=== PATIENT | female | born 1940 | race African-American/Black ===

== ENCOUNTER 2022-02-21 09:19 | Inpatient (IN) | payer BC, MEDICARE ==
[~2022-02-21] VITALS: Ht 165.1 cm; Wt 52.2 kg
[2022-02-21] MEDS ORDERED: IOHEXOL-350 100 ML BOTTLE ONE (10:06)
[2022-02-21 10:20] LABS: BASOPHILS % 0.6 % (0.0-2.0); EOSINOPHILS % 0.1 % (0.0-5.0); HEMATOCRIT. 27.2 % (36.0-48.0); HEMOGLOBIN. 7.9 g/dL (12.0-16.0); LYMPHOCYTES % 22.8 % (20.0-50.0); MEAN CORPUSCULAR HEMOGLOBIN 25.5 pg (28.0-32.0); MEAN CORPUSCULAR VOLUME 88.2 fL (81.0-99.0); MEAN PLATELET VOLUME 7.8 fl (7.4-10.4); MONOCYTES % 9.3 % (2.0-8.0); NEUTROPHILS % 67.2 % (40.0-76.0); PLATELET 266 x1000/uL (130-400); RED BLOOD CELL COUNT 3.09 mill/uL (4.2-5.4); RED CELL DISTRIBUTION WIDTH 18.3 % (11.6-14.6)
[2022-02-21 10:21] LABS: CHLORIDE 106 mEq/L (98-107)
[2022-02-21 10:24] LABS: ETHANOL BLOOD < 10 mg/dL
[2022-02-21 10:29] LABS: CREATINE KINASE 57 IU/L (26-192)
[2022-02-21] MEDS ORDERED: DEXAMETHASONE 10 MG/ML VIAL IV ONE (10:30)
[2022-02-21] MEDS ORDERED: LEVETIRACETAM 500MG PREMIX 100 ML IV ONE (10:30)
[2022-02-21] MEDS ORDERED: PIPERACILLIN/TAZOBACTAM 3.375GM/50ML PREMIX IV ONE (10:30)
[2022-02-21] MEDS ORDERED: LORAZEPAM 2MG/ML CPJ IV ONE (10:30)
[2022-02-21] MEDS ORDERED: PIPERACILLIN/TAZ 3.375G PREMIX 50 ML IV NR (11:00)
[2022-02-21 11:29] LABS: BG BASE EXCESS -21.6 mmol/L (-2.0-2.0); BG CARBOXYHEMOGLOBIN 0.3 % (0.5-1.5); BG DEOXYHEMOGLOBIN 1.1 % (0.0-5.0); BG FRACTION INSPIRED OXYGEN 100; BG HCO3 ACT 10.3 mmol/L (22.0-26.0); BG METHEMOGLOBIN 0.8 % (0.0-1.5); BG OXYGEN SATURATION 98.9 % (92.0-98.5); BG OXYHEMOGLOBIN 97.8 % (94.0-97.0); BG PCO2 54.1 mmHg (35.0-45.0); BG PH 6.896 (7.350-7.450); BG PO2 235.9 mmHg (75.0-100.0); BG SAMPLE SITE RIGHT BRACHIAL; BG TOTAL HEMOGLOBIN 8.4 g/dL (12.0-18.0); BG VENT MODE MASK - NRB
[2022-02-21] MEDS: DEXAMETHASONE 10 MG/ML VIAL IV NR ×2 (11:38→15:57)
[2022-02-21] MEDS ORDERED: DILTIAZEM HCL 5MG/ML 5ML VIAL IV ONE (12:00)
[2022-02-21] MEDS ORDERED: SODIUM BICARBONATE 8.4% 1 MEQ/ML 50ML SYR IV ONE ×2 (12:30)
[2022-02-21] MEDS ORDERED: MORPHINE SULFATE 4 MG/ML CPJ (NOT FOR IM USE) IV ONE (12:30)
[2022-02-21] MEDS ORDERED: SODIUM BICARBONATE 100 MEQ in DEXTROSE 5% WATER 1,000 ML IV SCH (12:30)
[2022-02-21] MEDS ORDERED: DIGOXIN 500MCG/2ML AMP IV SCH (13:00)
[2022-02-21] MEDS ORDERED: ONDANSETRON HCL 4MG/2ML INJ IV PRN (13:45)
[2022-02-21] MEDS ORDERED: IPRATROPIUM/ALBUTEROL 0.5-3(2.5)MG/3ML NEB NEB PRN (13:45)
[2022-02-21] MEDS ORDERED: NA PHOS,M-B/NA PHOS,DI-BA ENEMA 118ML PR PRN (13:45)
[2022-02-21] MEDS ORDERED: ACETAMINOPHEN 650MG SUPP PR PRN (13:45)
[2022-02-21] MEDS ORDERED: NALOXONE HCL 0.4MG/ML VIAL IV PRN (14:00)
[2022-02-21] MEDS ORDERED: DEXT 5%/0.45% NACL 1000ML 1,000 ML IV SCH (14:00)
[2022-02-21] MEDS: IPRATROPIUM/ALBUTEROL 0.5-3(2.5)MG/3ML NEB NEB SCH (14:51)
[2022-02-21] MEDS: LORAZEPAM 2MG/ML CPJ IV PRN (15:57)
[2022-02-21 16:08] LABS: CREATINE KINASE MB FRACTION 2.1 ng/mL (0.5-3.6)
[2022-02-21 17:12] LABS: BG BASE EXCESS -2.2 mmol/L (-2.0-2.0); BG DEOXYHEMOGLOBIN 5.4 % (0.0-5.0); BG METHEMOGLOBIN 0.4 % (0.0-1.5); BG OXYGEN SATURATION 94.6 % (92.0-98.5); BG OXYHEMOGLOBIN 94.2 % (94.0-97.0); BG PCO2 64.2 mmHg (35.0-45.0); BG PH 7.226 (7.350-7.450); BG PO2 89.7 mmHg (75.0-100.0); BG SAMPLE SITE RIGHT BRACHIAL; BG TOTAL HEMOGLOBIN 9.9 g/dL (12.0-18.0); BG VENT MODE MASK - NRB
[2022-02-21 17:40] LABS: CHLORIDE 105 mEq/L (98-107)
[2022-02-21 17:45] LABS: HEMATOCRIT. 31.5 % (36.0-48.0); HEMOGLOBIN. 9.2 g/dL (12.0-16.0); MEAN CORPUSCULAR HEMOGLOBIN 24.9 pg (28.0-32.0); MEAN CORPUSCULAR VOLUME 85.1 fL (81.0-99.0); MEAN PLATELET VOLUME 8.1 fl (7.4-10.4); PLATELET 184 x1000/uL (130-400); RED BLOOD CELL COUNT 3.71 mill/uL (4.2-5.4); RED CELL DISTRIBUTION WIDTH 18.3 % (11.6-14.6)
[2022-02-21 19:42] LABS: PLATELET ESTIMATE NORMAL
[2022-02-21] MEDS ORDERED: LEVETIRACETAM 500MG PREMIX 100 ML IV SCH (21:00)
[2022-02-21] MEDS ORDERED: DIGOXIN 500MCG/2ML AMP IV NR (21:15)
[2022-02-21 21:33] LABS: CLARITY URINE CLEAR (CLEAR); COLOR URINE YELLOW (YELLOW); KETONES URINE NEGATIVE (NEGATIVE); LEUKOCYTE ESTERASE URINE NEGATIVE (NEGATIVE); NITRITE URINE NEGATIVE (NEGATIVE); OCCULT BLOOD URINE NEGATIVE (NEGATIVE); PROTEIN URINE 2+ (NEGATIVE); SPECIFIC GRAVITY URINE 1.045 (1.005-1.030); UROBILINOGEN URINE 0.2 E.U./dL (0.2-1.0)
[2022-02-21 21:47] LABS: *AMPHETAMINES SCREEN URINE NEGATIVE (NEGATIVE); *BARBITURATES SCREEN URINE NEGATIVE (NEGATIVE); *BENZODIAZEPINES SCREEN URINE NEGATIVE (NEGATIVE); *COCAINE SCREEN URINE NEGATIVE (NEGATIVE); METHADONE URINE SCREEN NEGATIVE (NEGATIVE); OPIATES URINE SCREEN PRESUMTIVE POSITIVE (NEGATIVE)
[2022-02-21 21:48] LABS: CANNABINOID URINE SCREEN PRESUMTIVE POSITIVE (NEGATIVE); PHENCYCLIDINE URINE SCREEN NEGATIVE (NEGATIVE)
[2022-02-21] MEDS ORDERED: PIPERACILLIN/TAZOBACTAM 3.375 G in DEXTROSE 5% WATER 50 ML IV SCH (22:00)
[2022-02-21] MEDS: PANTOPRAZOLE SODIUM 40 MG/VIAL IV SCH (23:14)
[2022-02-21 23:46] LABS: CREATINE KINASE MB FRACTION 2.5 ng/mL (0.5-3.6)
[2022-02-22] VITALS (12 sets, daily range): BP systolic 133–158; BP diastolic 71–111
[2022-02-22] MEDS: PIPERACILLIN/TAZOBACTAM 3.375 G in DEXTROSE 5% WATER 50 ML IV SCH ×3 (06:32→22:39)
[2022-02-22 08:12] LABS: HEMATOCRIT. 27.3 % (36.0-48.0); HEMOGLOBIN. 8.5 g/dL (12.0-16.0); MEAN CORPUSCULAR HEMOGLOBIN 25.1 pg (28.0-32.0); MEAN PLATELET VOLUME 8.2 fl (7.4-10.4); PLATELET 209 x1000/uL (130-400); RED BLOOD CELL COUNT 3.41 mill/uL (4.2-5.4); RED CELL DISTRIBUTION WIDTH 17.4 % (11.6-14.6)
[2022-02-22 08:27] LABS: CHLORIDE 105 mEq/L (98-107)
[2022-02-22 08:41] LABS: *AMPHETAMINES SCREEN URINE NEGATIVE (NEGATIVE); *BARBITURATES SCREEN URINE NEGATIVE (NEGATIVE)
[2022-02-22 08:42] LABS: *BENZODIAZEPINES SCREEN URINE NEGATIVE (NEGATIVE); *COCAINE SCREEN URINE NEGATIVE (NEGATIVE); CANNABINOID URINE SCREEN PRESUMTIVE POSITIVE (NEGATIVE); METHADONE URINE SCREEN NEGATIVE (NEGATIVE); OPIATES URINE SCREEN PRESUMTIVE POSITIVE (NEGATIVE); PHENCYCLIDINE URINE SCREEN NEGATIVE (NEGATIVE)
[2022-02-22] MEDS: IPRATROPIUM/ALBUTEROL 0.5-3(2.5)MG/3ML NEB NEB SCH ×2 (08:49→20:29)
[2022-02-22 09:25] LABS: BG BASE EXCESS 3.5 mmol/L (-2.0-2.0); BG CARBOXYHEMOGLOBIN 0.3 % (0.5-1.5); BG DEOXYHEMOGLOBIN 7.5 % (0.0-5.0); BG FRACTION INSPIRED OXYGEN 28; BG HCO3 ACT 27.4 mmol/L (22.0-26.0); BG METHEMOGLOBIN 0.6 % (0.0-1.5); BG OXYGEN SATURATION 92.4 % (92.0-98.5); BG OXYHEMOGLOBIN 91.6 % (94.0-97.0); BG PH 7.465 (7.350-7.450); BG PO2 61.7 mmHg (75.0-100.0); BG SAMPLE SITE RIGHT BRACHIAL; BG TOTAL HEMOGLOBIN 9.5 g/dL (12.0-18.0); BG VENT MODE NASAL CANNULA
[2022-02-22] MEDS: LEVETIRACETAM 500MG PREMIX 100 ML IV SCH ×2 (09:54→22:39)
[2022-02-22 10:09] LABS: DIGOXIN 3.6 ng/mL (0.9-2.0)
[2022-02-22 11:27] LABS: PLATELET ESTIMATE NORMAL
[2022-02-22] MEDS ORDERED: DILTIAZEM 125MG/125ML PMX 125 ML IV PRN (13:30)
[2022-02-22] MEDS: MORPHINE SULFATE 2 MG/ML CPJ (NOT FOR IM USE) IV PRN (13:59)
[2022-02-22] MEDS: DILTIAZEM 125MG/125ML PMX 125 ML IV SCH (14:37)
[2022-02-22] MEDS: FUROSEMIDE 40MG/4ML VIAL IVP SCH (17:01)
[2022-02-22] MEDS ORDERED: VANCOMYCIN 1GM PMX (XELLIA) 200 ML IV NR (17:30)
[2022-02-23] VITALS (12 sets, daily range): BP systolic 123–148; BP diastolic 60–81
[2022-02-23] MEDS: IPRATROPIUM/ALBUTEROL 0.5-3(2.5)MG/3ML NEB NEB SCH ×4 (02:21→20:24)
[2022-02-23] MEDS: DILTIAZEM 125MG/125ML PMX 125 ML IV SCH ×2 (03:05→12:21)
[2022-02-23] MEDS: PIPERACILLIN/TAZOBACTAM 3.375 G in DEXTROSE 5% WATER 50 ML IV SCH ×3 (05:44→22:12)
[2022-02-23] MEDS: FUROSEMIDE 40MG/4ML VIAL IVP SCH ×2 (09:40→22:14)
[2022-02-23] MEDS: LEVETIRACETAM 500MG PREMIX 100 ML IV SCH ×2 (09:40→20:39)
[2022-02-23] MEDS: MORPHINE SULFATE 2 MG/ML CPJ (NOT FOR IM USE) IV PRN (09:41)
[2022-02-23] MEDS: VANCOMYCIN 750MG PMX (XELLIA) 150 ML IV SCH (12:20)
[2022-02-23 15:18] LABS: HEMATOCRIT. 30.3 % (36.0-48.0); HEMOGLOBIN. 9.3 g/dL (12.0-16.0); MEAN CORPUSCULAR HEMOGLOBIN 24.3 pg (28.0-32.0); MEAN CORPUSCULAR VOLUME 78.8 fL (81.0-99.0); MEAN PLATELET VOLUME 8.1 fl (7.4-10.4); PLATELET 260 x1000/uL (130-400); RED BLOOD CELL COUNT 3.85 mill/uL (4.2-5.4); RED CELL DISTRIBUTION WIDTH 17.6 % (11.6-14.6)
[2022-02-23] MEDS ORDERED: FUROSEMIDE 40MG/4ML VIAL IVP SCH (16:30)
[2022-02-23] MEDS ORDERED: VANCOMYCIN 750MG PMX (XELLIA) 150 ML IV SCH (17:00)
[2022-02-23 17:52] LABS: PLATELET ESTIMATE NORMAL
[2022-02-23 18:10] LABS: CHLORIDE 101 mEq/L (98-107)
[2022-02-23] MEDS ORDERED: POTASSIUM CHLORIDE INJ 40 MEQ in DEXT 5% WATER 250 ML IV ONE (18:30)
[2022-02-23] MEDS: KCL 20MEQ/100ML X 2 FOR TOTAL KCL 40MEQ/200ML IV SCH ×2 (20:39→23:32)
[2022-02-24] VITALS (12 sets, daily range): BP systolic 102–135; BP diastolic 49–72
[2022-02-24] MEDS: IPRATROPIUM/ALBUTEROL 0.5-3(2.5)MG/3ML NEB NEB SCH ×4 (02:04→21:20)
[2022-02-24] MEDS: DILTIAZEM 125MG/125ML PMX 125 ML IV SCH ×2 (03:01→13:58)
[2022-02-24 05:37] LABS: HEMATOCRIT. 30.1 % (36.0-48.0); HEMOGLOBIN. 9.3 g/dL (12.0-16.0); MEAN CORPUSCULAR HEMOGLOBIN 24.4 pg (28.0-32.0); MEAN CORPUSCULAR VOLUME 79.4 fL (81.0-99.0); MEAN PLATELET VOLUME 8.3 fl (7.4-10.4); PLATELET 284 x1000/uL (130-400); RED BLOOD CELL COUNT 3.79 mill/uL (4.2-5.4); RED CELL DISTRIBUTION WIDTH 17.6 % (11.6-14.6)
[2022-02-24] MEDS: FUROSEMIDE 40MG/4ML VIAL IVP SCH ×3 (05:48→16:09)
[2022-02-24] MEDS: PIPERACILLIN/TAZOBACTAM 3.375 G in DEXTROSE 5% WATER 50 ML IV SCH ×3 (05:48→22:34)
[2022-02-24] MEDS: VANCOMYCIN 750MG PMX (XELLIA) 150 ML IV SCH (05:48)
[2022-02-24 06:15] LABS: CHLORIDE 90 mEq/L (98-107)
[2022-02-24] MEDS ORDERED: POTASSIUM CHLORIDE 20MEQ TABLET SR PO SCH (09:00)
[2022-02-24] MEDS: PANTOPRAZOLE SODIUM 40 MG/VIAL IV SCH (09:31)
[2022-02-24] MEDS: LEVETIRACETAM 500MG PREMIX 100 ML IV SCH (09:31)
[2022-02-24] MEDS: LORAZEPAM 2MG/ML CPJ IV PRN (10:21)
[2022-02-24] MEDS: DILTIAZEM HCL 30MG TABLET NG SCH ×2 (12:00→18:00)
[2022-02-24] MEDS: MORPHINE SULFATE 2 MG/ML CPJ (NOT FOR IM USE) IV PRN ×3 (12:46→22:34)
[2022-02-24 14:28] LABS: PLATELET ESTIMATE NORMAL
[2022-02-24] MEDS ORDERED: POTASSIUM CHLORIDE INJ 40 MEQ in DEXT 5% WATER 250 ML IV STA (21:39)
[2022-02-24] MEDS: LEVETIRACETAM 750 MG in SODIUM CHLORIDE 0.9% 100 ML IV SCH (21:54)
[2022-02-24] MEDS ORDERED: MAGNESIUM 2 G PREMIX 50 ML IV NR (22:00)
[2022-02-24] MEDS ORDERED: POTASSIUM CHLORIDE 20MEQ/PACKET NG NR (22:00)
[2022-02-24] MEDS: KCL 20MEQ/100ML X 2 FOR TOTAL KCL 40MEQ/200ML IV SCH (22:26)
[2022-02-25] VITALS (12 sets, daily range): BP systolic 98–117; BP diastolic 47–81
[2022-02-25] MEDS: VANCOMYCIN 750MG PMX (XELLIA) 150 ML IV SCH (01:35)
[2022-02-25] MEDS: IPRATROPIUM/ALBUTEROL 0.5-3(2.5)MG/3ML NEB NEB SCH ×4 (02:09→21:50)
[2022-02-25] MEDS: KCL 20MEQ/100ML X 2 FOR TOTAL KCL 40MEQ/200ML IV SCH (03:42)
[2022-02-25] MEDS: DILTIAZEM 125MG/125ML PMX 125 ML IV SCH (03:46)
[2022-02-25] MEDS: PIPERACILLIN/TAZOBACTAM 3.375 G in DEXTROSE 5% WATER 50 ML IV SCH ×3 (05:27→21:08)
[2022-02-25] MEDS: FUROSEMIDE 40MG/4ML VIAL IVP SCH ×2 (05:27→18:05)
[2022-02-25] MEDS: DILTIAZEM HCL 30MG TABLET NG SCH ×4 (05:28→18:06)
[2022-02-25 05:37] LABS: BASOPHILS % 0.1 % (0.0-2.0); EOSINOPHILS % 0.2 % (0.0-5.0); HEMATOCRIT. 30.8 % (36.0-48.0); HEMOGLOBIN. 9.5 g/dL (12.0-16.0); LYMPHOCYTES % 9.1 % (20.0-50.0); MEAN CORPUSCULAR VOLUME 77.7 fL (81.0-99.0); MEAN PLATELET VOLUME 8.1 fl (7.4-10.4); MONOCYTES % 7.2 % (2.0-8.0); NEUTROPHILS % 83.4 % (40.0-76.0); PLATELET 269 x1000/uL (130-400); RED BLOOD CELL COUNT 3.97 mill/uL (4.2-5.4); RED CELL DISTRIBUTION WIDTH 17.6 % (11.6-14.6)
[2022-02-25] MEDS: POTASSIUM CHLORIDE 20MEQ/PACKET NG SCH (09:17)
[2022-02-25] MEDS: LEVETIRACETAM 750 MG in SODIUM CHLORIDE 0.9% 100 ML IV SCH ×2 (09:17→21:08)
[2022-02-25] MEDS: PANTOPRAZOLE SODIUM 40 MG/VIAL IV SCH (09:17)
[2022-02-25] MEDS: MORPHINE SULFATE 2 MG/ML CPJ (NOT FOR IM USE) IV PRN ×2 (14:23→20:10)
[2022-02-25] MEDS ORDERED: MIDODRINE HCL 5MG TABLET PO NR (16:15)
[2022-02-25] MEDS ORDERED: DILTIAZEM HCL 30MG TABLET PO NR (16:15)
[2022-02-25] MEDS: MIDODRINE HCL 2.5MG TABLET PO SCH (21:08)
[2022-02-26] VITALS (9 sets, daily range): BP systolic 100–120; BP diastolic 48–70
[2022-02-26] MEDS: IPRATROPIUM/ALBUTEROL 0.5-3(2.5)MG/3ML NEB NEB SCH ×4 (01:26→21:00)
[2022-02-26] MEDS: PIPERACILLIN/TAZOBACTAM 3.375 G in DEXTROSE 5% WATER 50 ML IV SCH ×3 (05:20→20:25)
[2022-02-26] MEDS: VANCOMYCIN 750MG PMX (XELLIA) 150 ML IV SCH (05:21)
[2022-02-26] MEDS: MIDODRINE HCL 2.5MG TABLET PO SCH (05:21)
[2022-02-26] MEDS: FUROSEMIDE 40MG/4ML VIAL IVP SCH ×2 (05:21→17:20)
[2022-02-26] MEDS: DILTIAZEM HCL 30MG TABLET NG SCH ×2 (05:22)
[2022-02-26] MEDS: MULTIVITAMINS,THER W-MINERALS TABLET NG SCH (09:03)
[2022-02-26] MEDS: THIAMINE HCL 100MG TABLET NG SCH (09:03)
[2022-02-26] MEDS: POTASSIUM CHLORIDE 20MEQ/PACKET NG SCH (09:03)
[2022-02-26] MEDS: PANTOPRAZOLE SODIUM 40 MG/VIAL IV SCH (09:03)
[2022-02-26] MEDS: FOLIC ACID 1MG TABLET NG SCH (09:03)
[2022-02-26] MEDS ORDERED: MIDODRINE HCL 2.5MG TABLET PO NR (10:30)
[2022-02-26] MEDS: DILTIAZEM HCL 60MG TABLET NG SCH ×2 (13:11→17:20)
[2022-02-26] MEDS: MIDODRINE HCL 5MG TABLET NG SCH ×2 (13:28→20:25)
[2022-02-26] MEDS ORDERED: LORAZEPAM 2MG/ML CPJ IV PRN (15:15)
[2022-02-26] MEDS: LEVETIRACETAM 750 MG in SODIUM CHLORIDE 0.9% 100 ML IV SCH (20:30)
[2022-02-26] MEDS ORDERED: NALOXONE HCL 0.4MG/ML VIAL IV PRN (21:30)
[2022-02-27] VITALS: BP 113/47
[2022-02-27] MEDS: DILTIAZEM HCL 60MG TABLET NG SCH ×3 (00:03→12:00)
[2022-02-27] MEDS: IPRATROPIUM/ALBUTEROL 0.5-3(2.5)MG/3ML NEB NEB SCH ×3 (02:41→14:27)
[2022-02-27 04:00] VITALS: BP 122/51
[2022-02-27] MEDS: VANCOMYCIN 750MG PMX (XELLIA) 150 ML IV SCH (05:51)
[2022-02-27] MEDS: MIDODRINE HCL 5MG TABLET NG SCH ×2 (05:52→13:52)
[2022-02-27] MEDS: FUROSEMIDE 40MG/4ML VIAL IVP SCH (05:52)
[2022-02-27 08:00] VITALS: BP 83/47
[2022-02-27] MEDS: FOLIC ACID 1MG TABLET NG SCH (08:25)
[2022-02-27] MEDS: MULTIVITAMINS,THER W-MINERALS TABLET NG SCH (08:25)
[2022-02-27] MEDS: THIAMINE HCL 100MG TABLET NG SCH (08:25)
[2022-02-27] MEDS: POTASSIUM CHLORIDE 20MEQ/PACKET NG SCH (08:26)
[2022-02-27] MEDS: PANTOPRAZOLE SODIUM 40 MG/VIAL IV SCH (08:26)
[2022-02-27] MEDS: LEVETIRACETAM 750 MG in SODIUM CHLORIDE 0.9% 100 ML IV SCH ×2 (09:00→13:52)
[2022-02-27 12:00] VITALS: BP 82/49
[2022-02-27 16:00] VITALS: BP 109/50
[2022-02-27] MEDS ORDERED: MIDODRINE HCL 5MG TABLET NG SCH (16:17)
[2022-02-27] MEDS: MORPHINE SULFATE 2 MG/ML CPJ (NOT FOR IM USE) IV PRN (18:12)
[2022-02-27 20:00] VITALS: BP 121/65
[2022-02-27] MEDS ORDERED: MIDODRINE HCL 2.5MG TABLET PO SCH (22:00)
[2022-02-28] VITALS: BP 132/56
[2022-02-28] MEDS: MORPHINE SULFATE 2 MG/ML CPJ (NOT FOR IM USE) IV PRN ×3 (03:03→16:06)
[2022-02-28 04:00] VITALS: BP 103/53
[2022-02-28 08:00] VITALS: BP 121/79
[2022-02-28 12:00] VITALS: BP 112/59
[2022-02-28 16:00] VITALS: BP 118/77
[2022-02-28 20:00] VITALS: BP 117/54
[2022-03-01] VITALS: BP 120/55
[2022-03-01 04:00] VITALS: BP 108/43
[2022-03-01] MEDS: MORPHINE SULFATE 2 MG/ML CPJ (NOT FOR IM USE) IV PRN (04:35)
[2022-03-01 08:00] VITALS: BP 108/70
[2022-03-01 12:00] VITALS: BP 107/51
[2022-03-01 16:00] VITALS: BP 109/69
[2022-03-01 20:00] VITALS: BP 106/49
[2022-03-01] MEDS: MORPHINE SULFATE 100 MG in DEXT 5% WATER 90 ML IV SCH (23:18)
[2022-03-02] VITALS: BP 110/31
[2022-03-02 04:00] VITALS: BP 112/70
[2022-03-02 08:00] VITALS: BP 117/42
[2022-03-02 12:00] VITALS: BP 101/80
[2022-03-02 16:00] VITALS: BP 97/46
[2022-03-02 20:00] VITALS: BP 114/42
[2022-03-02] MEDS: MORPHINE SULFATE 100 MG in DEXT 5% WATER 90 ML IV SCH (21:13)
[2022-03-03] VITALS: BP 87/29
[2022-03-03 08:00] VITALS: BP 83/47
[2022-03-03 12:00] VITALS: BP 87/43
[2022-03-03 16:15] VITALS: BP 96/55
[2022-03-03 20:00] VITALS: BP 88/38
[2022-03-04] VITALS: BP 86/37
[2022-03-04] MEDS: MORPHINE SULFATE 100 MG in DEXT 5% WATER 90 ML IV SCH (00:41)
[2022-03-04 04:00] VITALS: BP 75/36
[2022-03-04 08:00] VITALS: BP 65/33
[2022-03-04 12:00] VITALS: BP 77/38
[2022-03-04 16:00] VITALS: BP 74/29
== END 2022-03-04 19:15 | DRG 871 ==
LOC: EDBD 09:19 → ER 09:19 → SUPCPDRO 12:55 → EDBEDREQ 15:26 → EDBEDREQTM 20:16 → EDBEDREQ 20:16 → ENRESERV 22:38 → CANRESERV 22:38 → ENRESERV 23:01 → 5EST 02-22 01:38 → 6EST 02-26 11:23
PROVIDERS: ADMIT Internal Medicine; ATTEND Internal Medicine
PROC: 4A10X4Z Monitoring of Central Nervous Electrical Activity, External Approach (ICD-10-PCS; principal; 2022-02-24)
DX: A41.9 Sepsis, unspecified organism (principal); I21.4 Non-ST elevation (NSTEMI) myocardial infarction; J96.00 Acute respiratory failure, unspecified whether with hypoxia or hypercapnia; J69.0 Pneumonitis due to inhalation of food and vomit; I63.9 Cerebral infarction, unspecified; G93.49 Other encephalopathy; M48.56XA Collapsed vertebra, not elsewhere classified, lumbar region, initial encounter for fracture; I48.20 Chronic atrial fibrillation, unspecified; I42.9 Cardiomyopathy, unspecified; R18.8 Other ascites; Z66 Do not resuscitate; I11.0 Hypertensive heart disease with heart failure; I65.23 Occlusion and stenosis of bilateral carotid arteries; D64.9 Anemia, unspecified; N28.1 Cyst of kidney, acquired; I50.9 Heart failure, unspecified; I27.29 Other secondary pulmonary hypertension; Z90.49 Acquired absence of other specified parts of digestive tract; Z51.5 Encounter for palliative care; I69.30 Unspecified sequelae of cerebral infarction
CPT/HCPCS: 36415; 36600; 70496; 70498; 70551; 71045; 71250; 80048; 80053; 80162; 80202; 80305; 80320; 81003; 82270; 82375; 82550; 82553; 82805; 82962; 83605; 83735; 83880; 84132; 84443; 84484; 85025; 93005; 93306; 94640; 95816; 97161; 99291; A6261; C9113; J1100; J1160; J1940; J1953; J2060; J2270; J2543; J3370; J3475; J3480; J3490; J7050; J7060; J7070; Q9967; A4315; G0480